=== PATIENT | female | born 1955 | race Caucasian/White ===

== ENCOUNTER 2016-11-29 15:05 | Emergency (ER) | payer MEDICAID ==
[2016-11-29 15:50] VITALS: BMI 26.2
[2016-11-29 16:50] LABS: SQUAMOUS EPITHIAL < 1 /hpf (0-5); URINE BILIRUBIN NEGATIVE (NEGATIVE); URINE CLARITY Clear (Clear); URINE COLOR Straw (YELLOW); URINE GLUCOSE (UA) NORMAL (Normal); URINE LEUKOCYTE ESTERASE NEG Leu/uL (Negative); URINE NITRATE NEGATIVE (NEGATIVE); URINE PROTEIN NEGATIVE (NEGATIVE); URINE UROBILINOGEN NORMAL mg/dL (0.2-1.0)
[2016-11-29 17:04] LABS: URINE BLOOD TRACE (NEGATIVE)
--- NOTE | 2016-11-29 17:24 | C.PDOC ---
History Of Present Illness 61 y/o female presents to the ED with complaints of rash to bilateral legs x2 weeks. Pt denies pain or itching or any no new lesions. Pt also notes urinary frequency and constipation. Denies vaginal discharge or bleeding, fever, SOB or any other complaints. Denies any known allergens. Pt saw PMD, diagnosed with allergic reaction for which she is taking zyrtec. Time Seen by Provider: 11/29/16 16:00 Chief Complaint (Nursing): Female Genitourinary History Per: Patient History/Exam Limitations: no limitations Onset/Duration Of Symptoms: Days Current Symptoms Are (Timing): Still Present Quality Of Symptoms: denies: Painful, Itching Severity: Mild Recent travel outside of the [place]: No Past Medical History Reviewed: Historical Data, Nursing Documentation, Vital Signs Vital Signs: Last Vital Signs Temp 98 F 11/29/16 17:36 Pulse 58 L 11/29/16 17:36 Resp 18 11/29/16 17:36 BP 110/71 11/29/16 17:36 Pulse Ox 100 11/29/16 22:31 - Medical History PMH: Diabetes, Gastritis, HTN, Hypercholesterolemia, Osteoporosis Surgical History: Appendectomy Family History: States: Unknown Family Hx - Social History Hx Tobacco Use: No Hx Alcohol Use: No Hx Substance Use: No - Immunization History Hx Tetanus Toxoid Vaccination: No Hx Influenza Vaccination: No Hx Pneumococcal Vaccination: No Review Of Systems Except As Marked, All Systems Reviewed And Found Negative. Constitutional: Negative for: Fever, Chills Respiratory: Negative for: Shortness of Breath Gastrointestinal: Positive for: Abdominal Pain Genitourinary: Positive for: Frequency. Negative for: Dysuria, Hematuria, Vaginal Discharge, Vaginal Bleeding Skin: Positive for: Rash Physical Exam - Physical Exam Appears: Non-toxic, No Acute Distress Skin: Warm, Dry, Rash (nonblanching erythematous macular rash to bilateral legs (-) pustules (-)petechia (-) purpura (-) vesicles/bullae) Head: Atraumatic, Normacephalic Eye(s): bilateral: Normal Inspection, EOMI Nose: Normal Oral Mucosa: Moist Neck: Normal, Normal ROM, Supple Chest: Symmetrical Cardiovascular: Rhythm Regular, No Murmur Respiratory: Normal Breath Sounds, No Rales, No Rhonchi, No Wheezing Gastrointestinal/Abdominal: Normal Exam, Soft, No Tenderness Extremity: Normal ROM, No Swelling Neurological/Psych: Oriented x3, Normal Speech, Normal Cognition ED Course And Treatment O2 Sat by Pulse Oximetry: 100 (room air) Pulse Ox Interpretation: Normal Progress Note: Seen and evaluated by Dr Hawthorne, agreed upon plan to discharge, instructed follow up with PMD in 1-2 days. Discussed with pt signs and symptoms of concern, possible ddx and strict follow up. Discussed UA results do not indicate UTI, will send culture. Offered constipation treatment, pt notes she has medication at home. Discussed diet changes. Disposition - Disposition Referrals: Clinic,Med Surg [Primary Care Provider] - Disposition: HOME/ ROUTINE Disposition Time: 17:19 Condition: STABLE Additional Instructions: Vaya a ya mdico o la clnica en 1-3 swartz sin falta, para mas evaluacin. [place] los medicamentos sajan indicado. Volver a la aurora de emergencia en cualquier momento si los sntomas persisten o empeoran. Instructions: Acute Rash (ED) Print Language: KENYAN - Clinical Impression Clinical Impression: Constipation, Rash - PA / SHUTTLE THREADER / Resident Statement MD/DO has reviewed & agrees with the documentation as recorded. - Scribe Statement The provider has reviewed the documentation as recorded by the Scribchacho Tejada All medical record entries made by the Soniaibchacho were at my direction and personally dictated by me. I have reviewed the chart and agree that the record accurately reflects my personal performance of the history, physical exam, medical decision making, and the department course for this patient. I have also personally directed, reviewed, and agree with the discharge instructions and disposition.
[2016-11-29 17:38] VITALS: BP 110/71; PULSE 58; RESP 18; TEMP 98
[2016-11-29 17:51] VITALS: O2SAT 100
== END 2016-11-29 17:38 | disposition home or self-care (01) ==
LOC: C.ER 15:05 → SUPCPDRO 15:05 → C.ER 17:38
DX: R21 Rash and other nonspecific skin eruption (principal); K59.00 Constipation, unspecified

== ENCOUNTER 2017-06-13 13:46 | Emergency (ER) | payer MEDICAID ==
[2017-06-13 13:47] VITALS: BMI 26.2
[2017-06-13 14:14] VITALS: TEMP 98.8
[2017-06-13 15:49] LABS: URINE BILIRUBIN NEGATIVE (NEGATIVE); URINE CLARITY Clear (Clear); URINE COLOR Straw (YELLOW); URINE GLUCOSE (UA) NORMAL (Normal); URINE LEUKOCYTE ESTERASE NEG Leu/uL (Negative); URINE NITRATE NEGATIVE (NEGATIVE); URINE PROTEIN NEGATIVE (NEGATIVE); URINE UROBILINOGEN NORMAL mg/dL (0.2-1.0)
[2017-06-13] MEDS ORDERED: Sodium Chloride 0.9% 1,000 ML IV ONE (15:56)
[2017-06-13 16:21] LABS: URINE BLOOD NEGATIVE (NEGATIVE)
[2017-06-13] MEDS ORDERED: Sodium Chloride 0.9% 1,000 ML ONE (16:26)
[2017-06-13 16:28] LABS: BASO % 0.4 % (0.0-2.0); EOS # 0.1 K/uL (0.0-0.7); EOS % 1.6 % (0.0-4.0); HEMOGLOBIN 10.7 g/dL (11.0-16.0); LYMPH # 1.7 K/uL (1.0-4.3); LYMPH % 35.1 % (20.0-40.0); MEAN CELL VOLUME 90.6 fL (81.0-99.0); MEAN CORPUSCULAR HEMOGLOBIN 30.2 pg (27.0-31.0); MEAN CORPUSCULAR HGB CONC 33.4 g/dL (33.0-37.0); MEAN PLATELET VOLUME 9.4 fL (7.2-11.7); MONO # 0.3 K/uL (0.0-0.8); MONO % 6.1 % (0.0-10.0); NEUT # 2.7 K/uL (1.8-7.0); NEUT % 56.8 % (50.0-75.0); NRBC % 0.1 % (0.0-2.0); RBC 3.54 Mil/uL (3.80-5.20); WHITE BLOOD COUNT 4.7 K/uL (4.8-10.8)
[2017-06-13 16:45] LABS: ALB/GLOB RATIO 1.2 (1.0-2.1); ALBUMIN 4.3 g/dL (3.5-5.0); ALT/SGPT 24 U/L (9-52); AST/SGOT 28 U/L (14-36); BLOOD UREA NITROGEN 24 mg/dL (7-17); CALCIUM 9.6 mg/dl (8.6-10.4); GFR AFRICAN-AMERICAN > 60; GFR NON-AFRICAN AMERICAN > 60; LIPASE 99 U/L (23-300)
--- NOTE | 2017-06-13 16:48 | C.PDOC ---
History Of Present Illness 62 y/o female presents to the ER complaining of cramping right-sided abdominal pain. Of note, patient states that she has a history of constipation. Patient does not have any other complaints. Time Seen by Provider: 06/13/17 15:50 Chief Complaint (Nursing): Abdominal Pain History Per: Patient History/Exam Limitations: no limitations Onset/Duration Of Symptoms: Hrs Current Symptoms Are (Timing): Still Present Severity: Moderate Quality Of Discomfort: Cramping Past Medical History Reviewed: Historical Data, Nursing Documentation, Vital Signs Vital Signs: Last Vital Signs Temp 98.8 F 06/13/17 17:11 Pulse 66 06/13/17 17:11 Resp 18 06/13/17 17:11 BP 132/78 06/13/17 17:11 Pulse Ox 100 06/13/17 17:11 - Medical History PMH: Diabetes, Gastritis, HTN, Hypercholesterolemia, Osteoporosis Surgical History: Appendectomy Family History: States: No Known Family Hx - Social History Hx Tobacco Use: No Hx Alcohol Use: No Hx Substance Use: No - Immunization History Hx Tetanus Toxoid Vaccination: No Hx Influenza Vaccination: No Hx Pneumococcal Vaccination: No Review Of Systems Except As Marked, All Systems Reviewed And Found Negative. Constitutional: Negative for: Fever, Chills Gastrointestinal: Positive for: Abdominal Pain. Negative for: Nausea, Vomiting , Diarrhea Physical Exam - Physical Exam Appears: Non-toxic, No Acute Distress Skin: Normal Color, Warm Head: Atraumatic, Normacephalic Eye(s): bilateral: Normal Inspection, PERRL Nose: Normal Oral Mucosa: Moist Neck: Supple Chest: Symmetrical Cardiovascular: Rhythm Regular Respiratory: Normal Breath Sounds, No Accessory Muscle Use, No Rales, No Rhonchi , No Wheezing Gastrointestinal/Abdominal: Normal Exam, Soft, No Tenderness, Other (tympanitic epigastrum dull on right side, negative McBurney's, negative Davila's) Extremity: Normal ROM Neurological/Psych: Oriented x3, Normal Speech, Normal Cognition, Normal Motor, Normal Sensation ED Course And Treatment - Laboratory Results Result Diagrams: 06/13/17 16:24 06/13/17 16:24 Lab Interpretation: Normal (ua neg.) O2 Sat by Pulse Oximetry: 97 - Radiology CXR: Interpreted by Me CXR Interpretation: Yes: No Acute Disease - Other Rad abd x 2 X-Ray: Interpreted by Me (+FOS) Progress Note: NS, toradol, pepcid Reevaluation Time: 16:47 Reassessment Condition: Improved Medical Decision Making Medical Decision Making: recurrent constipation poor diet again, laxatives and stool softners educated (similar to visit 12/06) Disposition Doctor Will See Patient In The: Office Counseled Patient/Family Regarding: Studies Performed, Diagnosis - Disposition Referrals: Alison Clayton [Staff Provider] - Disposition: HOME/ ROUTINE Disposition Time: 16:48 Condition: GOOD Additional Instructions: yvette un purgante ahora- mitch botella de Citrato de Magnesio- y re-evalua ya molestia del abdomen despues de usar el milind 2-3 veces Repita sajan necessario Sigue Colace 100 mg dos veces al stanley (esuavesante de los heces) para ayudar en PREVENIR el estrenemiento. Dieta saludable: 7 verduras y frutas crudas diarios. yvette mas agua. Sigue con ya medico sajan necessario. Prescriptions: Docusate [Colace] 100 mg PO BID #60 cap Magnesium Citrate [[facility] Magnesium Citrate] 300 ml PO ONCE PRN #1 bottle PRN Reason: Constipation Instructions: Constipation (ED) Forms: [employer] (Botswanan) Print Language: [place] - Clinical Impression Clinical Impression: History of abdominal colic - Scribe Statement The provider has reviewed the documentation as recorded by the Scribe Nhi Arriola Provider Attestation: All medical record entries made by the Scribe were at my direction and personally dictated by me. I have reviewed the chart and agree that the record accurately reflects my personal performance of the history, physical exam, medical decision making, and the department course for this patient. I have also personally directed, reviewed, and agree with the discharge instructions and disposition.
[2017-06-13 17:12] VITALS: BP 132/78; PULSE 66; RESP 18
--- NOTE | 2017-06-13 17:25 | RAD ---
PROCEDURE: Radiographs of the chest and abdomen (obstructive series) HISTORY: abd pain COMPARISON: CT abdomen pelvis without contrast performed 06/26/16 TECHNIQUE: AP radiograph of the chest, with upright and supine radiographs of the abdomen. FINDINGS: CHEST: The cardiomediastinal silhouette appears within normal limits of size. No focal consolidation, significant pleural effusion, or definite pneumothorax identified. Please note that chest x-ray has limited sensitivity for the detection of pulmonary masses. ABDOMEN AND PELVIS: Nonobstructive bowel gas pattern. No definite free air. Moderate constipation. Pelvic calcifications, likely phleboliths. No acute osseous abnormality is detected. IMPRESSION: Moderate constipation.
[2017-06-13 18:22] VITALS: O2SAT 97
== END 2017-06-13 17:12 | disposition home or self-care (01) ==
LOC: C.ER 13:46
DX: R10.84 Generalized abdominal pain (principal); I10 Essential (primary) hypertension; E11.9 Type 2 diabetes mellitus without complications
CPT/HCPCS: 74022; 80053; 81001; 83690; 85025; 96361; 96374; 96375; 99285; J1885; J2405; J7040

== ENCOUNTER 2018-09-13 12:02 | Emergency (ER) | payer MEDICAID ==
[2018-09-13 12:02] VITALS: BMI 26.2
[2018-09-13 13:18] LABS: EOS # 0.1 K/uL (0.0-0.7); EOS % 2.2 % (0.0-4.0); HEMOGLOBIN 11.6 g/dL (11.0-16.0); LYMPH # 1.2 K/uL (1.0-4.3); MEAN CORPUSCULAR HEMOGLOBIN 31.2 pg (27.0-31.0); MEAN CORPUSCULAR HGB CONC 33.7 g/dL (33.0-37.0); MONO # 0.3 K/uL (0.0-0.8); MONO % 6.7 % (0.0-10.0); NEUT % 64.1 % (50.0-75.0); NRBC % 0.2 % (0.0-2.0); RBC 3.71 Mil/uL (3.80-5.20); RED CELL DISTRIBUTION WIDTH 13.1 % (11.5-14.5); WHITE BLOOD COUNT 4.7 K/uL (4.8-10.8)
[2018-09-13 13:24] LABS: SQUAMOUS EPITHIAL < 1 /hpf (0-5); URINE BILIRUBIN NEGATIVE (NEGATIVE); URINE BLOOD 1+ (NEGATIVE); URINE CLARITY Clear (Clear); URINE COLOR Yellow (YELLOW); URINE GLUCOSE (UA) NORMAL (Normal); URINE LEUKOCYTE ESTERASE NEG Leu/uL (Negative); URINE PROTEIN NEGATIVE (NEGATIVE); URINE UROBILINOGEN NORMAL mg/dL (0.2-1.0)
[2018-09-13 13:25] LABS: MEAN CELL VOLUME 92.8 fL (81.0-99.0)
[2018-09-13 13:35] LABS: ALB/GLOB RATIO 1.4 (1.0-2.1); ALBUMIN 4.7 g/dL (3.5-5.0); ALT/SGPT 11 U/L (9-52); AST/SGOT 35 U/L (14-36); BLOOD UREA NITROGEN 32 mg/dL (7-17); CALCIUM 9.9 mg/dl (8.6-10.4); GFR NON-AFRICAN AMERICAN > 60; LIPASE 152 U/L (23-300)
--- NOTE | 2018-09-13 13:43 | C.PDOC ---
History Of Present Illness Patient is a 63yo F with a PMH of HTN, gastritis, arthritis, constipation here today for worsening abdominal pain x15 days. She saw her PMD two days ago, mostly for her knees, and was told that her abdominal pain was due to her constipation. She rates it a 8/10 generalized abdominal pain, concentrated in her RUQ with radiation sometimes to the R flank. It comes and goes, and is most relieved when she defecates. She defecated earlier this morning, and has a BM every other day usually. She does take Linzess as directed. She complains of decreased appetite and generalized weakness, however has been eating with her family and able to tolerate diet. Denies falls, dizziness, headache. Associated nausea without vomiting. Denies chest pain, palpitations, shortness of breath. Chief Complaint (Nursing): Abdominal Pain History Per: Patient History/Exam Limitations: no limitations Onset/Duration Of Symptoms: Days, Intermittent Episodes Pain Scale Rating Of: 8 Location Of Pain/Discomfort: Diffuse, RUQ Radiation Of Pain To:: Flank Quality Of Discomfort: Pressure Associated Symptoms: Nausea, Loss Of Appetite, Constipation. denies: Fever, Chills, Vomiting, Diarrhea Exacerbating Factors: None Last Bowel Movement: Today Past Medical History Reviewed: Historical Data, Nursing Documentation, Vital Signs Vital Signs: Last Vital Signs Temp 98.1 F 09/13/18 12:27 Pulse 79 09/13/18 12:27 Resp 18 09/13/18 12:27 BP 106/69 09/13/18 12:27 Pulse Ox 97 09/13/18 12:27 - Medical History PMH: Diabetes, Gastritis, HTN, Hypercholesterolemia, Osteoporosis Surgical History: Appendectomy Family History: States: Unknown Family Hx - Social History Hx Tobacco Use: No Hx Alcohol Use: No Hx Substance Use: No - Immunization History Hx Tetanus Toxoid Vaccination: No Hx Influenza Vaccination: No Hx Pneumococcal Vaccination: No Review Of Systems Constitutional: Positive for: Weakness, Weight loss (5 lbs over 3 months). Negative for: Fever, Chills Cardiovascular: Negative for: Chest Pain, Palpitations, Edema, Light Headedness Respiratory: Negative for: Cough, Shortness of Breath, Wheezing Gastrointestinal: Positive for: Nausea, Abdominal Pain, Constipation. Negative for: Vomiting, Diarrhea Genitourinary: Negative for: Incontinence, Hematuria Musculoskeletal: Positive for: Neck Pain, Shoulder Pain, Back Pain Neurological: Positive for: Weakness. Negative for: Numbness, Altered Mental Status, Headache, Dizziness Physical Exam - Physical Exam Appears: Well, No Acute Distress Skin: Normal Color, Warm, Dry Head: Atraumatic, Normacephalic Eye(s): bilateral: PERRL, EOMI Oral Mucosa: Moist Cardiovascular: Rhythm Regular, No Edema, No Murmur Respiratory: Normal Breath Sounds, No Accessory Muscle Use, No Rales, No Rhonchi, No Wheezing Gastrointestinal/Abdominal: Normal Exam, Bowel Sounds, Soft, No Tenderness (nonTTP when patient unaware), No Distention, Guarding (when patient is aware of palpation, negative Davila's), No Rebound Back: Normal Inspection, No CVA Tenderness, No Paraspinal Tenderness Extremity: No Tenderness, No Pedal Edema Extremity: Bilateral: Atraumatic, No Pedal Edema, Normal Color And Temperature Neurological/Psych: Oriented x3, Normal Speech, Normal Cognition, Normal Motor ED Course And Treatment - Laboratory Results Result Diagrams: 09/13/18 13:14 09/13/18 13:14 Lab Results: Total Bilirubin 0.3 mg/dL (0.2-1.3) 09/13/18 13:14 AST 35 U/L (14-36) 09/13/18 13:14 ALT 11 U/L (9-52) 09/13/18 13:14 Alkaline Phosphatase 72 U/L (38-126) 09/13/18 13:14 Total Protein 8.0 g/dL (6.3-8.3) 09/13/18 13:14 Albumin 4.7 g/dL (3.5-5.0) 09/13/18 13:14 Globulin 3.3 gm/dL (2.2-3.9) 09/13/18 13:14 Albumin/Globulin Ratio 1.4 (1.0-2.1) 09/13/18 13:14 Lipase 152 U/L (23-300) 09/13/18 13:14 Urine Color Yellow (YELLOW) 09/13/18 13:14 Urine Clarity Clear (Clear) 09/13/18 13:14 Urine pH 6.0 (5.0-8.0) 09/13/18 13:14 Ur Specific [place] 1.012 (1.003-1.030) 09/13/18 13:14 Urine Protein Negative mg/dL (NEGATIVE) 09/13/18 13:14 Urine Glucose (UA) Normal mg/dL (Normal) 09/13/18 13:14 Urine Ketones Negative mg/dL (NEGATIVE) 09/13/18 13:14 Urine Blood 1+ (NEGATIVE) H 09/13/18 13:14 Urine Nitrate Negative (NEGATIVE) 09/13/18 13:14 Urine Bilirubin Negative (NEGATIVE) 09/13/18 13:14 Urine Urobilinogen Normal mg/dL (0.2-1.0) 09/13/18 13:14 Ur Leukocyte Esterase Neg Mona/uL (Negative) 09/13/18 13:14 Urine WBC (Auto) 1 /hpf (0-5) 09/13/18 13:14 Urine RBC (Auto) 4 /hpf (0-3) H 09/13/18 13:14 Ur Squamous Epith Cells < 1 /hpf (0-5) 09/13/18 13:14 ECG: Interpreted By Me, Viewed By Me ECG Rhythm: Sinus Rhythm ECG Interpretation: Normal Interpretation Of ECG: NSR@62 without STT wave changes Rate From EC O2 Sat by Pulse Oximetry: 97 Medical Decision Making Medical Decision Making: - labs - UA - IVP Toradol 30 - 1L NS bolus 1413 Patient is walking comfortably in the hallway 1443 Upon completion of IVF, patient states that she was SOB, feeling weaker, and shaking. Denies chills. Her lungs are clear, vitals stable - O2 sat 97% RA. Walking without difficulty - EKG - CXR - orthostatic vitals Patient is clinically stable and no longer complaining of abdominal pain or c hills. Her vitals are stable and she is not feeling weak. Disposition - Disposition Disposition: HOME/ ROUTINE Disposition Time: 15:50 Condition: GOOD Prescriptions: Ibuprofen [Motrin] 600 mg PO Q6H PRN #10 tab PRN Reason: Pain, Mild (1-3) Instructions: Irritable Bowel Syndrome (DC) Forms: [employer] (Angolan) - Clinical Impression Clinical Impression: Nausea, Irritable bowel syndrome with constipation
[2018-09-13] MEDS ORDERED: Sodium Chloride 0.9% 1,000 ML IV ONE (13:45)
[2018-09-13] MEDS ORDERED: Sodium Chloride 0.9% 1,000 ML ONE (14:04)
[2018-09-13 14:40] VITALS: BP 115/67; PULSE 72; RESP 20
[2018-09-13 14:59] VITALS: O2SAT 97
[2018-09-13 15:40] VITALS: TEMP 98.5
--- NOTE | 2018-09-13 16:08 | RAD ---
Date of service: 09/13/2018 HISTORY: SOB COMPARISON: 06/13/2017. FINDINGS: LUNGS: The lungs are well inflated and clear. PLEURA: No pleural effusions or pneumothorax. CARDIOVASCULAR: The heart is normal in size. No aortic atherosclerotic calcifications present. OSSEOUS STRUCTURES: Within normal limits for the patient's age. VISUALIZED UPPER ABDOMEN: Normal. OTHER FINDINGS: None. IMPRESSION: No active pulmonary disease.
--- NOTE | 2018-09-14 19:39 | CARD ---
APPROVED REPORT Date of service: 09/13/2018 EKG Measurement Heart [id number] [id number] <Conclusion> Normal sinus rhythm Normal ECG
== END 2018-09-13 16:16 | disposition home or self-care (01) ==
LOC: C.ER 12:02
DX: K58.1 Irritable bowel syndrome with constipation (principal); R11.0 Nausea
CPT/HCPCS: 36415; 71045; 80053; 81001; 82948; 83690; 85025; 93005; 96361; 96374; 99285; J1885; J7030